=== PATIENT | female | born 1945 | race Caucasian/White ===

== ENCOUNTER 2024-02-11 20:24 | Observation (INO) ==
[2024-02-11 22:00] LABS: Urine Appearance Clear; Urine Bilirubin Negative (Negative); Urine Blood Negative (Negative); Urine Color Light-Yellow; Urine Glucose Negative (Negative); Urine Ketones 1+ (Negative); Urine Nitrite Negative (Negative); Urine Protein Negative (Negative); Urine Specific Gravity 1.012 (1.002-1.030); Urine Urobilinogen Negative (Negative)
[2024-02-11 22:01] LABS: ABS Lymphocytes 1.5 10^3/uL (1.0-4.8); ABS Monocytes 0.4 10^3/uL (0.0-0.9); ABS Neutrophils 3.2 10^3/uL (1.5-7.6); ABS Nucleated RBC 0.01 10^3/ul; Eosinophil % 0.9 %; Hematocrit 35.2 % (35-45); Lymphocyte % 28.4 %; Mean Corpuscular Hemoglobin 33.4 pg (27-33); Mean Corpuscular Hgb Conc 34.2 g/dL (31-36); Mean Corpuscular Volume 97.7 fL (80-97); Mean Platelet Volume 8.7 fL (7.5-11.2); Nucleated Red Blood Cells % 0.1 %/100WBC (0.0-0.8); Platelet Count 213 10^3/uL (150-450); Red Cell Distribution Width 13.5 % (12-17); White Blood Count 5.1 10^3/uL (3.8-11.8)
[2024-02-11 22:15] LABS: INR 0.96 (0.83-1.13)
[2024-02-11 22:20] LABS: Urine Benzodiazepine Screen None Detected (None Detect); Urine Cannabinoids Screen None Detected (None Detect); Urine Opiates Screen None Detected (None Detect)
[2024-02-11 22:25] LABS: High Sens Troponin Baseline 3 pg/mL (<15)
[2024-02-11 22:33] LABS: Phenytoin 15.1 mcg/mL (10-20)
[2024-02-11 22:35] LABS: ALT 9 U/L (7-52); AST 15 U/L (13-39); Albumin/Globulin Ratio 1.7 (1-3); Alcohol, S < 13 mg/dL (<13); Alkaline Phosphatase 72 U/L (35-149); Anion Gap 12 mmol/L (2-16); Blood Urea Nitrogen 14 mg/dL (6-24); C Reactive Protein 12.64 mg/L (<8.01); CO2 Carbon Dioxide 24 mmol/L (22-32); Calcium 9.1 mg/dL (8.6-10.3); Chloride 108 mmol/L (101-111); Creatinine, Serum 0.69 mg/dL (0.51-0.95); Globulin 2.3 g/dL (2-4); Glucose 86 mg/dL (70-100); Potassium 3.6 mmol/L (3.5-5.0); Sodium 144 mmol/L (135-145); Total Bilirubin 0.4 mg/dL (0.2-1.0); Total Protein 6.3 g/dL (6.4-8.9); eGFR CKD-EPI 89.9 (>60)
[2024-02-11 22:49] LABS: TSH Ultra Thyroid Stim Horm 7.55 mcIU/mL (0.34-5.60)
[2024-02-11 22:52] LABS: Free T4 0.67 ng/dL (0.61-1.12)
[2024-02-11 23:21] LABS: High Sensitivity Troponin 1 Hr 4 pg/mL (<15)
[2024-02-12] MEDS: Potassium Chlor 20 meq TAB.ER PO ONE (04:25)
[2024-02-12 04:51] LABS: ABS Lymphocytes 1.5 10^3/uL (1.0-4.8); ABS Monocytes 0.5 10^3/uL (0.0-0.9); ABS Neutrophils 2.8 10^3/uL (1.5-7.6); Eosinophil % 0.9 %; Hematocrit 34.3 % (35-45); Hemoglobin 11.7 g/dL (11.5-14.3); Lymphocyte % 30.5 %; Mean Corpuscular Hemoglobin 33.2 pg (27-33); Mean Corpuscular Volume 97.7 fL (80-97); Mean Platelet Volume 8.4 fL (7.5-11.2); Platelet Count 204 10^3/uL (150-450); Red Blood Count 3.51 10^6/uL (3.63-4.92); Red Cell Distribution Width 13.5 % (12-17); White Blood Count 4.8 10^3/uL (3.8-11.8)
[2024-02-12 05:35] LABS: Albumin 3.9 g/dL (3.2-5.2); Albumin/Globulin Ratio 1.7 (1-3); Creatinine, Serum 0.72 mg/dL (0.51-0.95); Globulin 2.3 g/dL (2-4); Magnesium 2.1 mg/dL (1.9-2.7); Potassium 3.9 mmol/L (3.5-5.0); Total Bilirubin 0.4 mg/dL (0.2-1.0); Total Protein 6.2 g/dL (6.4-8.9); eGFR CKD-EPI 86.6 (>60)
[2024-02-12] MEDS: Enoxaparin 40 MG/0.4 ML SYR SUBCUT SCH (05:36)
[2024-02-12] MEDS: Phenytoin 100 mg ER CAP PO SCH ×2 (10:10→19:59)
[2024-02-12] MEDS: Cyanocobalamin INJ 1,000 MCG/ML VIAL 1 ML VIAL IM ONE (17:43)
[2024-02-14 13:13] VITALS: BP 115/53
== END 2024-02-14 14:35 ==
LOC: ED 20:24 → EDHOLD 20:24 → SUATTDRO 02-12 01:42 → MED 02-12 03:28
PROVIDERS: ADMIT Student in an Organized Health Care Education/Training Program; ATTEND Internal Medicine